=== PATIENT | male | born 1970 | race Caucasian/White ===

== ENCOUNTER 2020-12-26 05:19 | Inpatient (IN) | payer BC ==
[2020-12-19 14:52] LABS: BASOPHILS # (AUTO) 0.1 X10'3 (0-0.2); EOSINOPHILS # (AUTO) 0.2 X10'3 (0-0.9); EOSINOPHILS % (AUTO) 4.6 % (0-6); LYMPHOCYTES # (AUTO) 0.5 X10'3 (1.1-4.8); LYMPHOCYTES % (AUTO) 10.1 % (21-51); MEAN CORPUSCULAR HEMOGLOBIN 34.6 PG (27.0-31.0); MEAN CORPUSCULAR HGB CONC 33.8 g/dL (33.0-36.5); MEAN CORPUSCULAR VOLUME 102.6 FL (78-98); MEAN PLATELET VOLUME 7.5 FL (7.4-10.4); MONOCYTES # (AUTO) 0.4 X10'3 (0-0.9); MONOCYTES % (AUTO) 8.4 % (2-12); NEUTROPHILS % (AUTO) 75.9 % (42-75); PRE OP HEMATOCRIT 41.5 % (42.0-52.0); PRE OP PLATELET COUNT 248 X10'3 (140-440); RED BLOOD COUNT 4.05 X10'6 (4.70-6.10); RED CELL DISTRIBUTION WIDTH 14.4 % (11.5-14.5)
[2020-12-19 15:07] LABS: ALBUMIN 3.8 G/DL (3.4-5.0); ALBUMIN/GLOBULIN RATIO 1.1 (1.1-1.5); ALKALINE PHOSPHATASE 82 IU/L (46-116); BLOOD UREA NITROGEN 16 MG/DL (7-18); BUN/CREATININE RATIO 17.8 (5.4-32.0); CALCIUM 8.8 MG/DL (8.5-10.1); CHLORIDE 107 MMOL/L (99-107); PRE OP ALT 51 U/L (30-65); PRE OP ANION GAP 10 (8-16); PRE OP AST 26 U/L (10-37); PRE OP BILIRUB, TOTAL 0.6 MG/DL (0.0-1.0); PRE OP GLUCOSE 96 MG/DL (70-104); PRE OP POTASSIUM 4.1 MMOL/L (3.4-5.1); PRE OP SODIUM 143 MMOL/L (135-145); TOTAL CARBON DIOXIDE 25.9 MMOL/L (24-32); TOTAL PROTEIN 7.3 G/DL (6.4-8.2); eGFR 89 ML/MIN
[2020-12-26] VITALS (23 sets, daily range): BP systolic 112–134; BP diastolic 58–82
[~2020-12-26] VITALS: Ht 180.3 cm; Wt 72.8 kg
[~2020-12-26 05:19] MED LIST: DIGE1TAB PO; FISH1CAP15 PO; LACT1CAP65 PO; MULT-1085 PO; metroNIDAZOLE-Flagyl 500mg/NS 100ML IVPB IV ONE; ringers solution, lacted 1,000 ML IV SCH
[2020-12-26] MEDS ORDERED: MALTODEXTRIN/FRUCTOSE 0.68 KCAL/ML LIQUID 296ML BOTTLE PO ONE (05:30)
[2020-12-26] MEDS ORDERED: famotidine 20mg tablet PO ONE (05:30)
[2020-12-26] MEDS ORDERED: ceFOXitin 2GM-NS 100mL ADDvant 100 ML IV ONE (05:30)
[2020-12-26] MEDS ORDERED: heparin, porcine 5000 units/ml vial SQ ONE (05:30)
[2020-12-26] MEDS ORDERED: BUPIVAcaine/PF 2.5mg/ml (0.25%) 10ml vial ONE (07:13)
[2020-12-26] MEDS ORDERED: povidone-iodine 10% ointment 1 APPLIC APPLIC TP ONE (07:13)
[2020-12-26] MEDS ORDERED: LIDOCAINE 1%/EPI 1:100,000 inj. 10 ML multi-dose vial ONE (07:16)
[2020-12-26] MEDS ORDERED: morphine 4 MG/ML inj SYRINge IV PRN (07:25)
[2020-12-26] MEDS ORDERED: meperidine/PF 25mg/ml syringe IV PRN ×3 (07:25)
[2020-12-26] MEDS ORDERED: morphine 2 MG/ML inj. syringe IV PRN (07:25)
[2020-12-26] MEDS ORDERED: proCHLORperazine 10 MG/2 ml inj IV PRN (07:25)
[2020-12-26] MEDS ORDERED: ringers solution, lacted 1,000 ML IV SCH (07:25)
[2020-12-26] MEDS ORDERED: ondansetron/PF 4mg/2ml inj IV PRN (07:25)
[2020-12-26] MEDS ORDERED: midazolam 1 mg/ML 2ml injection ONE (07:32)
[2020-12-26] MEDS ORDERED: fentaNYL /PF 50mcg/ml 5ml ampule ONE (07:32)
[2020-12-26] MEDS ORDERED: propofol inj 20 ML IV ONE (07:34)
[2020-12-26] MEDS ORDERED: rocuronium 10mg/ml inj IV ONE ×2 (07:34→07:43)
[2020-12-26] MEDS ORDERED: LIDOcaine 2% (20mg/ml) 5ml vial ONE (07:34)
[2020-12-26] MEDS ORDERED: sevoflurane 250ml liquid IH ONE (07:43)
[2020-12-26] MEDS ORDERED: dexamethasone sod phosphate 10mg/ml inj ONE (07:43)
[2020-12-26] MEDS ORDERED: ceFOXitin 1000 MG inj ONE ×2 (12:00)
[2020-12-26] MEDS ORDERED: meperidine/PF 25mg/ml syringe ONE ×2 (12:42→13:14)
[2020-12-26] MEDS ORDERED: neostigmine methylsulfate 1 MG/ML 10ml vial ONE (13:00)
[2020-12-26] MEDS ORDERED: glycopyrrolate 0.2mg/ml inj ONE (13:00)
[2020-12-26] MEDS ORDERED: furosemide 40mg/4ml inj ONE (13:00)
--- NOTE | 2020-12-26 13:18 | NUR ---
Received from OR via BED, accompanied by Anesthesiologist MARICRUZ and report given by Anesthesiolgist. PT. ARRIVED WITH LMA, O2 AT 6 L. VIA MASK. LR INFUSING IN L. HAND 20G AT 100 ML/HR. IV SITE CDI. FC DRAINING TO GRAVITY 400 ML DARK STRAW URINE NOTED. 2 ABDOMINAL SITES DERMABONDED. R. LOWER QUADRANT ILEOSTOMY, NO CONTENTS, RUQ MAGDALENA DRAIN, LLQ MAGDALENA DRAIN, BOTH DRAINS DARK RED DRAINAGE NOTED. ABD. PAD WITH MESH UNDERCLOTHING AT ANAL AREA. ALL AREAS CLEAN AND DRY. VSS. NO S.S OF PAIN NOTED. Addendum: 12/26/20 at 1341 by Kathie Sharif RN Amended: Links added.
[2020-12-26] MEDS ORDERED: acetaminophen 1,000mg/100ml IV 100 ML IV ONE (13:46)
[2020-12-26] MEDS ORDERED: HYDROcodone/acetaminophen 5mg/325mg tablet PO PRN (14:10)
[2020-12-26] MEDS ORDERED: CADD PCA waste documentation MC PRN (14:10)
[2020-12-26] MEDS ORDERED: naloxone 0.4 mg/ml inj IV PRN (14:10)
[2020-12-26] MEDS: HYDROmorph./NS 0.2 mg/ml CADD 100 ML IV SCH ×5 (14:56→23:00)
[2020-12-26] MEDS ORDERED: HYDROmorph./NS 0.2 mg/ml CADD 100 ML IV SCH (15:00)
--- NOTE | 2020-12-26 15:18 | NUR ---
REPORT CALLED TO DELMAR MARTINEZ. CADD PUMP ASSEMBLED AND ATTACHED. FIRST DOSE TEST GIVEN BY PT. INSTRUCTIONS GIVEN ABOUT USAGE. PT. STATES UNDERSTANDING. VSS. ROOM AIR WITH SATS AT 98-100%. PT DENES PAIN. ABLE TO CONVERSE. REPORTS FC DISCOMFORT. TUBING CHECKED AND RECOILED. 500 ML TOTAL IN FC STRAW COLORED URINE. MAGDALENA DRAINS X2 EMPTIED 50 ML TOTAL (25 ML EACH) DARK RED DRAINAGE. ALL SITES ARE CDI. IV IN LEFT HAND WITH LR INFUSING AT 100 ML/HR. SITE CDI. NO INFILTRATION NOTED. PT. TRANSPORTED TO ROOM WITH PRESENT TO ROOM. PT. SITUATED IN ROOM RN PRESENT. ALL QUESTIONS ANSWERED. ALL DC CRITERIA MET. 2 BAGS OF BELONGINGS PUT IN CLOSET. PT. BED LOW. CALL LIGHT AND PAIN PUMP ACCESSIBLE. PT. TOLERATED TRANSFER WELL. Addendum: 12/26/20 at 1527 by Kathie Sharif RN Amended: Links added.
[2020-12-26] MEDS ORDERED: ceFOXitin 1 GM/D5W 50mL IVPB 100 ML IV SCH (16:00)
[2020-12-26] MEDS: ceFOXitin inj 1,000 MG in normal saline 100ml IV soln 100 ML IV SCH (16:13)
[2020-12-26] MEDS: potassium CL 20mEq in D5-1/2NS 1,000 ML IV SCH ×3 (16:13→23:05)
[2020-12-26] MEDS: metroNIDAZOLE-Flagyl 500mg/NS 100 ML IV SCH (17:16)
[2020-12-26] MEDS: heparin, porcine 5000 units/ml vial SQ SCH (17:16)
--- NOTE | 2020-12-26 18:48 | NUR ---
patient arrived from Recovery with 2 karthikeyan drains in right abdomen, ileostomy with minimal brownish reddish drainage in place to right abdomen. Pad to rectum with minimal serosang drainage in place with mesh pants. Patient is well controlled with his pain using Dilaudid cadd. present. tolerating clear liquid diet. recovery report given by paloma. post op VSS.
--- NOTE | 2020-12-26 18:49 | NUR ---
Patient in room RAN 360. I have received report from DELMAR MARTINEZ and had the opportunity to ask questions and assume patient care. Addendum: 12/26/20 at 1849 by Michelle Suarez RN Amended: Links added.
--- NOTE | 2020-12-26 18:51 | NUR ---
Problems reprioritized. Patient report given, questions answered & plan of care reviewed with Briana MARTINEZ.
--- NOTE | 2020-12-26 22:50 | NUR ---
ATTEMPT TO GET PT UP TO AMBULATE AND SAT EDGE OF BED BECAME DIZZY AND NAUSEATED. ZOFRAN OBTAINED AND GIVEN AFTER TAKING WHIFFS OF AN ALCOHOL SWAB TO ASSIST WITH THE NAUSEA. THEN SLOWLY PT STOOD UP AT SIDE OF BED STOOD IN PLACE MOVED HIS FEET THEN LAID BACK DOWN IN BED. AFTER 10 MINUTES OF REST IS TEACHING DONE PT USED IT 5 TIMES TO LEVEL 2500 TO 3000 AND TOLERATED WELL. LIGHTS OF TO LET PT REST AND ZOFRAN TO KICK IN BEFORE ATTEMPTING AMBULATION AGAIN. 5CC FROM THE ILEOSTOMY BAG WITH SMALL AMT OF GAS NOTED. MAGDALENA # ONE 25CC EMPTIED.
[2020-12-26] MEDS: ondansetron/PF 4mg/2ml inj IV PRN (22:56)
[2020-12-27] MEDS: metroNIDAZOLE-Flagyl 500mg/NS 100 ML IV SCH ×3 (00:25→16:31)
[2020-12-27] MEDS: HYDROmorph./NS 0.2 mg/ml CADD 100 ML IV SCH ×12 (00:31→23:00)
[2020-12-27] MEDS: heparin, porcine 5000 units/ml vial SQ SCH ×3 (00:31→16:00)
[2020-12-27] MEDS: ceFOXitin inj 1,000 MG in normal saline 100ml IV soln 100 ML IV SCH (01:27)
--- NOTE | 2020-12-27 01:30 | NUR ---
PT ASSISTED UP WAS WEAK AND DIZZY AT FIRST THEN AMBULATED 300 FEET WITH 2 RN'S AND TOLERATED FAIR. USED IS WITH ENCOURAGEMENT. ASSISTED TO BED, TOLERATED FAIR. SCD'S ON AND USING CADD WITH PAIN CONTROL. NO NEW RECTAL DRAINAGE AND ILEOTOMY WITH SOME GAS PASSED AND MAGDALENA'S RIGHT MIS AND LEFT LOWER ABD D/I AND DRAINING SANGUINOUS FLUIDS.
--- NOTE | 2020-12-27 03:21 | NUR ---
SEE PCT POST OP VITAL ENTRY'S. Addendum: 12/27/20 at 0321 by Michelle Suarez RN Amended: Links added.
[2020-12-27 06:23] LABS: ALBUMIN 2.8 G/DL (3.4-5.0); ANION GAP 1 (8-16); BASOPHILS % (AUTO) 0.4 % (0-1); BLOOD UREA NITROGEN 9 MG/DL (7-18); BUN/CREATININE RATIO 9.9 (5.4-32.0); C-REACTIVE PROTEIN 0.43 MG/DL (0.0-0.5); CALCIUM 7.8 MG/DL (8.5-10.1); CHLORIDE 106 MMOL/L (99-107); CREATININE 0.91 MG/DL (0.60-1.10); EOSINOPHILS % (AUTO) 0 % (0-6); GLUCOSE 142 MG/DL (70-104); HEMATOCRIT 34.5 % (42.0-52.0); LYMPHOCYTES # (AUTO) 0.3 X10'3 (1.1-4.8); LYMPHOCYTES % (AUTO) 3.6 % (21-51); MEAN CORPUSCULAR HEMOGLOBIN 35.7 PG (27.0-31.0); MEAN CORPUSCULAR HGB CONC 34.6 g/dL (33.0-36.5); MEAN CORPUSCULAR VOLUME 103.1 FL (78-98); MEAN PLATELET VOLUME 7.7 FL (7.4-10.4); MONOCYTES # (AUTO) 0.7 X10'3 (0-0.9); MONOCYTES % (AUTO) 8.3 % (2-12); NEUTROPHILS # (AUTO) 7.5 X10'3 (1.8-7.7); NEUTROPHILS % (AUTO) 87.7 % (42-75); PLATELET COUNT 181 X10'3 (140-440); RED BLOOD COUNT 3.35 X10'6 (4.70-6.10); RED CELL DISTRIBUTION WIDTH 13.1 % (11.5-14.5); SODIUM 133 MMOL/L (135-145); TOTAL CARBON DIOXIDE 26.1 MMOL/L (24-32); WHITE BLOOD COUNT 8.5 X10'3 (4.5-11.0); eGFR 88 ML/MIN
--- NOTE | 2020-12-27 06:35 | NUR ---
Problems reprioritized. Patient report given, questions answered & plan of care reviewed with JUAN CANTU. Addendum: 12/27/20 at 0636 by Micehlle Suarez RN Amended: Links added.
--- NOTE | 2020-12-27 06:38 | NUR ---
Patient in room RAN 360. I have received report from Michelle MARTINEZ with Cassi MARTINEZ and had the opportunity to ask questions and assume patient care.
--- NOTE | 2020-12-27 07:00 | NUR ---
CADD settings cleared from noc shift, residual volume is correct
[2020-12-27 08:00] VITALS: BP 109/57
[2020-12-27] MEDS: potassium CL 20mEq in D5-1/2NS 1,000 ML IV SCH (08:56)
[2020-12-27] MEDS: ondansetron/PF 4mg/2ml inj IV PRN (09:33)
[2020-12-27 11:00] VITALS: BP 111/58
--- NOTE | 2020-12-27 11:30 | NUR ---
Patient had bernal removed at 0920 and complained of pressure in bladder along with urge to urinate. Bladder scan was done with 409ml in bladder. Shortly after the patient was able to urinate 375 in the urinal.
--- NOTE | 2020-12-27 12:41 | NUR ---
Nutrition Consult "low fiber education": Pt admit s/p colon resection for low rectal CA w/ Ileostomy placement. Hx chemotherapy pending pathology to determine if to continue per MD note. Pt/ seen by RD for written/verbal Ileostomy/low-fiber diet eds w/ RD contact information provided. RD thoroughly reviewed fiber content of foods; appropriate fiber sources, oral rehydration solutions, and nutrition strategies to ensure consistent ostomy output. Pt/ very attentive asking appropriate questions. RD encouraged pt/ to request RD if further questions during this admit and contact dietitian's office via TC or via e-mail if further questions following discharge. Pt reports does not eat gluten or dairy outside cheeses per preferences not an allergy; dietary notified. Advanced to low-fiber diet post-op. Will monitor for further nutrition intervention needs this admit. Addendum: 12/27/20 at [address] Amended: Links added.
--- NOTE | 2020-12-27 18:08 | NUR ---
Student documentation: I have reviewed and agree with all interventions, assessments performed and documented by SN Junie. Student Medication Administration: For this medication-pass time frame, all medication were reviewed, dispensed, administered and documented per hospital policy by SN Junie.
--- NOTE | 2020-12-27 18:37 | NUR ---
Problems reprioritized. Patient report given to Rosette RN with Cora RN, questions answered & plan of care reviewed with .
--- NOTE | 2020-12-27 18:38 | NUR ---
Patient in room RAN 360. I have received report from PEPE RN WITH SHAKER TENDER and had the opportunity to ask questions and assume patient care.
[2020-12-27 20:00] VITALS: BP 129/77
[2020-12-28] VITALS: BP 108/60
[2020-12-28] MEDS: HYDROmorph./NS 0.2 mg/ml CADD 100 ML IV SCH ×6 (01:00→11:00)
[2020-12-28] MEDS: metroNIDAZOLE-Flagyl 500mg/NS 100 ML IV SCH ×2 (01:14→09:06)
[2020-12-28] MEDS: heparin, porcine 5000 units/ml vial SQ SCH ×3 (01:23→16:30)
[2020-12-28 05:41] LABS: BASOPHILS % (AUTO) 0.5 % (0-1); EOSINOPHILS # (AUTO) 0.1 X10'3 (0-0.9); EOSINOPHILS % (AUTO) 1.6 % (0-6); HEMATOCRIT 34.5 % (42.0-52.0); HEMOGLOBIN 12.3 g/dl (14.0-17.9); LYMPHOCYTES # (AUTO) 0.4 X10'3 (1.1-4.8); LYMPHOCYTES % (AUTO) 7.1 % (21-51); MEAN CORPUSCULAR HEMOGLOBIN 35.5 PG (27.0-31.0); MEAN CORPUSCULAR HGB CONC 35.6 g/dL (33.0-36.5); MEAN CORPUSCULAR VOLUME 99.7 FL (78-98); MEAN PLATELET VOLUME 7.8 FL (7.4-10.4); MONOCYTES # (AUTO) 0.6 X10'3 (0-0.9); MONOCYTES % (AUTO) 10.5 % (2-12); NEUTROPHILS # (AUTO) 4.8 X10'3 (1.8-7.7); NEUTROPHILS % (AUTO) 80.3 % (42-75); PLATELET COUNT 184 X10'3 (140-440); RED BLOOD COUNT 3.46 X10'6 (4.70-6.10); WHITE BLOOD COUNT 5.9 X10'3 (4.5-11.0)
[2020-12-28] MEDS: potassium CL 20mEq in D5-1/2NS 1,000 ML IV SCH (05:44)
[2020-12-28 05:52] LABS: ALBUMIN 2.9 G/DL (3.4-5.0); ANION GAP 7 (8-16); BLOOD UREA NITROGEN 7 MG/DL (7-18); BUN/CREATININE RATIO 8.8 (5.4-32.0); C-REACTIVE PROTEIN 1.38 MG/DL (0.0-0.5); CALCIUM 8.5 MG/DL (8.5-10.1); CHLORIDE 106 MMOL/L (99-107); GLUCOSE 110 MG/DL (70-104); POTASSIUM 3.7 MMOL/L (3.5-5.1); SODIUM 140 MMOL/L (135-145); TOTAL CARBON DIOXIDE 26.7 MMOL/L (24-32); eGFR > 90 ML/MIN
--- NOTE | 2020-12-28 06:40 | NUR ---
Problems reprioritized. Patient report given, questions answered & plan of care reviewed with TAMMI MARTINEZ.
--- NOTE | 2020-12-28 06:45 | NUR ---
Patient in room RAN 345. I have received report from JUAN Dinero and had the opportunity to ask questions and assume patient care.
[2020-12-28 07:00] VITALS: BP 114/56
[2020-12-28 11:00] VITALS: BP 119/68
--- NOTE | 2020-12-28 19:20 | NUR ---
Problems reprioritized. Patient report given, questions answered & plan of care reviewed with JUAN Cope.
[2020-12-29] VITALS: BP 121/65
[2020-12-29] MEDS: heparin, porcine 5000 units/ml vial SQ SCH ×2 (00:48→07:21)
[2020-12-29 06:14] LABS: BASOPHILS % (AUTO) 0.5 % (0-1); EOSINOPHILS # (AUTO) 0.3 X10'3 (0-0.9); EOSINOPHILS % (AUTO) 6.5 % (0-6); HEMATOCRIT 36.3 % (42.0-52.0); HEMOGLOBIN 12.5 g/dl (14.0-17.9); LYMPHOCYTES # (AUTO) 0.4 X10'3 (1.1-4.8); LYMPHOCYTES % (AUTO) 8.7 % (21-51); MEAN CORPUSCULAR HGB CONC 34.5 g/dL (33.0-36.5); MEAN CORPUSCULAR VOLUME 101.5 FL (78-98); MEAN PLATELET VOLUME 8.1 FL (7.4-10.4); MONOCYTES # (AUTO) 0.6 X10'3 (0-0.9); MONOCYTES % (AUTO) 12.4 % (2-12); NEUTROPHILS # (AUTO) 3.5 X10'3 (1.8-7.7); NEUTROPHILS % (AUTO) 71.9 % (42-75); PLATELET COUNT 185 X10'3 (140-440); RED BLOOD COUNT 3.57 X10'6 (4.70-6.10); RED CELL DISTRIBUTION WIDTH 12.6 % (11.5-14.5); WHITE BLOOD COUNT 4.8 X10'3 (4.5-11.0)
[2020-12-29 06:26] LABS: ALBUMIN 2.8 G/DL (3.4-5.0); ANION GAP 8 (8-16); BLOOD UREA NITROGEN 9 MG/DL (7-18); BUN/CREATININE RATIO 11.3 (5.4-32.0); C-REACTIVE PROTEIN 1.07 MG/DL (0.0-0.5); CALCIUM 8.5 MG/DL (8.5-10.1); CHLORIDE 108 MMOL/L (99-107); GLUCOSE 99 MG/DL (70-104); POTASSIUM 3.8 MMOL/L (3.5-5.1); SODIUM 143 MMOL/L (135-145); TOTAL CARBON DIOXIDE 27.3 MMOL/L (24-32); eGFR > 90 ML/MIN
--- NOTE | 2020-12-29 06:30 | NUR ---
Patient in room RAN 345. I have received report from JUAN Cope and had the opportunity to ask questions and assume patient care.
[2020-12-29 07:00] VITALS: BP 103/63
--- NOTE | 2020-12-29 07:39 | NUR ---
MAGDALENA drains DC'd by Dr Tenorio at bedside. Covered with sterile 4x4 gauze and silk tape.
[2020-12-29 11:35] VITALS: BP 125/73
--- NOTE | 2020-12-29 13:08 | NUR ---
Pt discharged to home with all belongings, in private vehicle, accompanied by . Discharge instructions and medications reviewed. No new prescriptions ordered. Extensive ostomy education provided by primary RN and flanging machine operator. Ileostomy applianced changed prior to discharge by flanging machine operator with at bedside. Ostomy supplies sent home with patient and sample supplies to be sent to pt's house, set up by flanging machine operator. Pt instructed to follow up with Dr Tenorio on January 12 at 1300 at [facility] in [place]. Signs/symptoms of infection explained to pt with instructions to contact Dr Tenorio with any concerns. Pt and stated understanding and willingness to comply with all discharge instructions. IV DC'd, cannula intact. Pt escorted to front lobby by student RN.
--- NOTE | 2020-12-29 16:35 | NUR ---
WOUND VAC EDUCATION PROVIDED BY WOUND CARE 1. Patient instructed to call the Wound Center or their Home Health Agency immediately if: * They notice a change in the color or amount of the fluid in the canister. * Their wound looks more red than usual or has a foul smell. * The skin around their wound looks reddened or irritated. * The dressing feels loose or appears to be loose. * They experience any increase or changes in their pain. * The alarm will not turn off. 2. Patient instructed that they should not be disconnected from suction for more than 2 hours at a time. * If they are not able to get the suction back on, they need to remove the dressing and take all of the foam out of the wound. * Then moisten sterile gauze with normal saline and place on/in the wound. * Change the dressing once a day until arrangements have been made to replace the wound vac dressing. 3. Patient instructed to turn the wound vac machine OFF and call 911 or go to the ED immediately if their canister fills rapidly with blood. 4. If any of these occur while in the hospital tell a nurse immediately. Addendum: 12/29/20 at 1635 by Leo Escobar RN Amended: Links added.
== END 2020-12-29 13:14 | disposition home or self-care (01) | DRG 331 ==
LOC: UNDOADMIN 05:19 → PAS IN 05:19 → SUR 3N 15:10 → PAS IN 15:10 → SUR 3N 12-28 01:45
PROVIDERS: ADMIT Colon & Rectal Surgery; ATTEND Colon & Rectal Surgery
PROC: 0DTP4ZZ Resection of Rectum, Percutaneous Endoscopic Approach (ICD-10-PCS; 2020-12-26)
PROC: 8E0W4CZ Robotic Assisted Procedure of Trunk Region, Percutaneous Endoscopic Approach (ICD-10-PCS; 2020-12-26)
PROC: 3E0T3BZ Introduction of Anesthetic Agent into Peripheral Nerves and Plexi, Percutaneous Approach (ICD-10-PCS; 2020-12-26)
PROC: 0D1B0Z4 Bypass Ileum to Cutaneous, Open Approach (ICD-10-PCS; principal; 2020-12-26 07:43)
DX: C20 Malignant neoplasm of rectum (principal); Z20.822 Contact with and (suspected) exposure to COVID-19; E86.0 Dehydration
CPT/HCPCS: Z7506; Z7508; 36415; 80048; 80053; 82948; 85025; 86140; 86885; 86900; 86901; 87081; 93005; A4215; A4338; A4355; A4402; A4421; A4618; A6258; A7000; C1758; G0378; J0131; J0694; J1100; J1170; J1644; J1940; J2001; J2175; J2250; J2405; J2704; J2710; J3010; J3480; J3490; J7030; J7120; U0003; U0005

== ENCOUNTER 2021-05-29 09:17 | Inpatient (IN) | payer BC ==
[2021-05-23 15:51] LABS: PRE OP PROTIME 10.1 SECONDS (9.0-12.0)
[2021-05-29] VITALS (28 sets, daily range): BP systolic 95–129; BP diastolic 51–80
[~2021-05-29] VITALS: Ht 180.3 cm; Wt 64.5 kg
[~2021-05-29 09:17] MED LIST changes: +APIX2.5T PO; -DIGE1TAB PO; -FISH1CAP15 PO; -LACT1CAP65 PO; +MALTODEXTRIN/FRUCTOSE 0.68 KCAL/ML LIQUID 296ML BOTTLE PO ONE; -MULT-1085 PO; +ceFOXitin 2GM-NS 100mL ADDvant 100 ML IV ONE; +cefazolin/dext.iso 2gm/50ml IV ONE; +famotidine 20mg tablet PO ONE; +heparin, porcine 5000 units/ml vial SQ ONE; -metroNIDAZOLE-Flagyl 500mg/NS 100ML IVPB IV ONE; +metroNIDAZOLE-Flagyl 500mg/NS 100ml IVPB IV ONE
[2021-05-29 11:19] LABS: BASOPHILS % (AUTO) 0.5 % (0-1); EOSINOPHILS % (AUTO) 0.5 % (0-6); HEMATOCRIT 37.9 % (42.0-52.0); HEMOGLOBIN 12.8 g/dl (14.0-17.9); LYMPHOCYTES # (AUTO) 0.3 X10'3 (1.1-4.8); LYMPHOCYTES % (AUTO) 5.3 % (21-51); MEAN CORPUSCULAR HEMOGLOBIN 36.6 PG (27.0-31.0); MEAN CORPUSCULAR HGB CONC 33.9 g/dL (33.0-36.5); MEAN PLATELET VOLUME 7.9 FL (7.4-10.4); MONOCYTES # (AUTO) 0.4 X10'3 (0-0.9); MONOCYTES % (AUTO) 6.3 % (2-12); NEUTROPHILS # (AUTO) 4.9 X10'3 (1.8-7.7); NEUTROPHILS % (AUTO) 87.4 % (42-75); PLATELET COUNT 166 X10'3 (140-440); RED BLOOD COUNT 3.51 X10'6 (4.70-6.10); WHITE BLOOD COUNT 5.6 X10'3 (4.5-11.0)
[2021-05-29 11:44] LABS: ANISOCYTOSIS 2+; PLATELET ESTIMATE NORMAL
[2021-05-29] MEDS ORDERED: BUPIVAcaine 0.5% inj/PF 30 ML ONE (13:17)
[2021-05-29] MEDS ORDERED: tobramycin 40mg/ml inj ONE ×2 (13:19→14:01)
[2021-05-29] MEDS ORDERED: FENTANYL CITRATE/PF 50 MCG/1 ML VIAL ONE (13:34)
[2021-05-29] MEDS ORDERED: midazolam 1 mg/ML 2ml injection ONE (13:34)
[2021-05-29] MEDS ORDERED: labetalol 20mg/4ml (5mg/ml) syringe IV PRN (13:40)
[2021-05-29] MEDS ORDERED: ringers solution, lacted 1,000 ML IV SCH (13:40)
[2021-05-29] MEDS ORDERED: ondansetron/PF 4mg/2ml inj IV PRN ×2 (13:40→15:25)
[2021-05-29] MEDS ORDERED: morphine 2 MG/ML inj. syringe IV PRN (13:40)
[2021-05-29] MEDS ORDERED: fentaNYL/PF 50MCG/1 ML 2ML syringe IV PRN ×2 (13:40)
[2021-05-29] MEDS ORDERED: hydrALAZINE 20mg/ml inj. IV PRN (13:40)
[2021-05-29] MEDS ORDERED: glycopyrrolate 0.2mg/ml inj ONE (13:52)
[2021-05-29] MEDS ORDERED: rocuronium 10mg/ml inj IV ONE (13:52)
[2021-05-29] MEDS ORDERED: LIDOcaine 2% (20mg/ml) 5ml vial ONE (13:52)
[2021-05-29] MEDS ORDERED: ondansetron/PF 4mg/2ml inj ONE (13:52)
[2021-05-29] MEDS ORDERED: neostigmine methylsulfate 1 MG/ML 10ml vial ONE (13:52)
[2021-05-29] MEDS ORDERED: propofol inj 20 ML IV ONE (13:52)
[2021-05-29] MEDS ORDERED: LIDOcaine 1% 30ml preserv. free vial ONE (14:00)
--- NOTE | 2021-05-29 15:20 | NUR ---
PT ARRIVED TO RECOVERY ROOM VIA BED, ACCOMPANIED BY -REPORT GIVEN, VSS, PT VERY SLEEPY, PIV 20G TO RIGHT UE, SCDS ON, ONE DRSG TO RLQ-CDI, PT HAS ORAL AIRWAY IN PLACE WITH MASK O2 AT 10 LTRS.
[2021-05-29] MEDS ORDERED: HYDROcodone/acetaminophen 5mg/325mg tablet PO PRN (15:25)
--- NOTE | 2021-05-29 15:26 | NUR ---
UNABLE TO AROUSE PT, PT UNABLE TO MAINTAIN AIRWAY EVEN WITH ORAL AIRWAY IN PLACE, O2 SATS DROPPED QUICKLY TO 70'S, PT REQUIRED CHIN LIFT TO MAINTAIN AIRWAY.
--- NOTE | 2021-05-29 15:30 | NUR ---
O2 SATS BETTER 99-100% WITH 15LTRS MASK ON PT WITH CHIN LIFT BEING MAINTAINED BY NURSING. DR TURCIOS NOT PRESENT BUT INFORMED, DR VALENCIA AT BEDSIDE ASSISTING WITH CHIN LIFT.
[2021-05-29] MEDS ORDERED: ceFOXitin 1 GM/D5W 50mL IVPB 100 ML IV SCH (16:00)
--- NOTE | 2021-05-29 16:20 | NUR ---
PT AROUSABLE NOW, ABLE TO PROTECT OWN AIRWAY-95% ON ROOM AIR, VSS-BP LOW 95/50, PT DENIES ANY PAIN, NO CHANGES-ABD DRSG, IV LR AT 100L/HR
[2021-05-29] MEDS ORDERED: acetaminophen 1,000mg/100ml IV 100 ML IV ONE (16:35)
[2021-05-29] MEDS: ketorolac tromethamine 15mg/ml inj. IV SCH ×2 (17:24→20:29)
--- NOTE | 2021-05-29 17:40 | NUR ---
PT C/O PAIN AND NAUSEA-GIVEN ZOFRAN, IV TYLENOL AND TORADOL ORDERED, VSS.
[2021-05-29] MEDS: morphine 4 MG/ML inj SYRINge IV PRN ×2 (17:44→18:02)
--- NOTE | 2021-05-29 18:25 | NUR ---
SD GIVEN 2 DOSES OF MORPHINE WITH GOOD RESULTS PAIN 4/10, VSS, BP BETTER, PT AWAKE AND TOLERATING ICE CHIPS, NO CHANGE IN DRSG, REPORT CALLED TO DAY RN BUT WILL SPEAK WITH NOC RN UPON ARRIVAL TO FLOOR.
--- NOTE | 2021-05-29 18:40 | NUR ---
PT TAKEN WITH ALL BELONGINGS TO ROOM 313, REPORT GIVEN TO GERI MOHR, ALL QUESTIONS ANSWERED, AT BEDSIDE, PT AWAKE, NO CHANGES IN ASSESSMENT, PAIN 06/08, VSS, BED LOW AND LOCKED, CALL LIGHT IN REACH
[2021-05-29] MEDS: ceFOXitin inj 1,000 MG in normal saline 100ml IV soln 100 ML IV SCH (19:37)
[2021-05-29] MEDS: potassium CL 20mEq in D5-1/2NS 1,000 ML IV SCH (19:38)
[2021-05-29] MEDS: heparin, porcine 5000 units/ml vial SQ SCH (20:31)
[2021-05-30] VITALS: BP 108/59
[2021-05-30 02:00] VITALS: BP 96/52
[2021-05-30] MEDS: ceFOXitin inj 1,000 MG in normal saline 100ml IV soln 100 ML IV SCH (02:02)
[2021-05-30] MEDS: ketorolac tromethamine 15mg/ml inj. IV SCH ×4 (02:02→19:59)
[2021-05-30] MEDS: potassium CL 20mEq in D5-1/2NS 1,000 ML IV SCH ×2 (04:45→22:34)
--- NOTE | 2021-05-30 05:46 | NUR ---
DR VALENCIA HERE AND TALKED WITH THE PATIENT AT THIS TIME AND INFORMED HIM OF THE PLAN OF CARE. TO TAKE IT SLOW WITH SIPS THROUGHOUT THE DAY AND TO ADVANCE TO A LOW RESIDUE DIET TOLERATED. HE INFORMED THE PATIENT THAT HIS BROTHERS WOULD BE DISCONTINUED TO DAY AND THAT HE WANTED THE PATIENT TO BE OUT OF BED BUT TO TAKE IT SLOW. PATIENT STABLE AND UNDERSTANDS THE PLAN. WILL INFORM DAYSHIFT NURSE OF THE PLAN.
--- NOTE | 2021-05-30 06:29 | NUR ---
Problems reprioritized. Patient report given, questions answered & plan of care reviewed with TANA MARTINEZ.
[2021-05-30 06:52] LABS: BASOPHILS % (AUTO) 0.2 % (0-1); EOSINOPHILS % (AUTO) 0 % (0-6); HEMATOCRIT 34.8 % (42.0-52.0); LYMPHOCYTES # (AUTO) 0.4 X10'3 (1.1-4.8); LYMPHOCYTES % (AUTO) 7.6 % (21-51); MEAN CORPUSCULAR HEMOGLOBIN 36.5 PG (27.0-31.0); MEAN CORPUSCULAR HGB CONC 34.3 g/dL (33.0-36.5); MEAN CORPUSCULAR VOLUME 106.3 FL (78-98); MEAN PLATELET VOLUME 7.7 FL (7.4-10.4); MONOCYTES # (AUTO) 0.5 X10'3 (0-0.9); MONOCYTES % (AUTO) 10.9 % (2-12); NEUTROPHILS # (AUTO) 3.8 X10'3 (1.8-7.7); NEUTROPHILS % (AUTO) 81.3 % (42-75); PLATELET COUNT 155 X10'3 (140-440); RED BLOOD COUNT 3.28 X10'6 (4.70-6.10); RED CELL DISTRIBUTION WIDTH 18.3 % (11.5-14.5); WHITE BLOOD COUNT 4.6 X10'3 (4.5-11.0)
[2021-05-30 06:53] LABS: ALBUMIN 3.1 G/DL (3.4-5.0); ANION GAP 9 (8-16); BLOOD UREA NITROGEN 19 MG/DL (7-18); CALCIUM 8.4 MG/DL (8.5-10.1); CHLORIDE 106 MMOL/L (99-107); CREATININE 0.95 MG/DL (0.60-1.10); GLUCOSE 127 MG/DL (70-104); POTASSIUM 4.2 MMOL/L (3.5-5.1); SODIUM 138 MMOL/L (135-145); TOTAL CARBON DIOXIDE 22.7 MMOL/L (24-32); eGFR 84 ML/MIN
[2021-05-30] MEDS ORDERED: normal saline 1000ml 1,000 ML IV ONE (08:50)
[2021-05-30] MEDS: heparin, porcine 5000 units/ml vial SQ SCH ×2 (09:20→19:58)
[2021-05-30 11:00] VITALS: BP 116/64
[2021-05-30 15:00] VITALS: BP 115/65
[2021-05-30 20:00] VITALS: BP 114/68
[2021-05-31] VITALS (7 sets, daily range): BP systolic 111–124; BP diastolic 65–77
[2021-05-31] MEDS: ketorolac tromethamine 15mg/ml inj. IV SCH ×3 (02:04→14:24)
[2021-05-31 06:35] LABS: BASOPHILS % (AUTO) 0.2 % (0-1); EOSINOPHILS % (AUTO) 0.7 % (0-6); HEMATOCRIT 36.1 % (42.0-52.0); HEMOGLOBIN 12.6 g/dl (14.0-17.9); LYMPHOCYTES # (AUTO) 0.4 X10'3 (1.1-4.8); LYMPHOCYTES % (AUTO) 6.2 % (21-51); MEAN CORPUSCULAR HEMOGLOBIN 37.1 PG (27.0-31.0); MEAN CORPUSCULAR HGB CONC 34.9 g/dL (33.0-36.5); MEAN CORPUSCULAR VOLUME 106.5 FL (78-98); MEAN PLATELET VOLUME 7.7 FL (7.4-10.4); MONOCYTES # (AUTO) 0.5 X10'3 (0-0.9); MONOCYTES % (AUTO) 7.8 % (2-12); NEUTROPHILS # (AUTO) 5.4 X10'3 (1.8-7.7); NEUTROPHILS % (AUTO) 85.1 % (42-75); PLATELET COUNT 150 X10'3 (140-440); RED BLOOD COUNT 3.39 X10'6 (4.70-6.10); RED CELL DISTRIBUTION WIDTH 18.5 % (11.5-14.5); WHITE BLOOD COUNT 6.4 X10'3 (4.5-11.0)
--- NOTE | 2021-05-31 06:38 | NUR ---
Problems reprioritized. Patient report given, questions answered & plan of care reviewed with D RN.
[2021-05-31 07:07] LABS: ALBUMIN 3.2 G/DL (3.4-5.0); ANION GAP 9 (8-16); BLOOD UREA NITROGEN 15 MG/DL (7-18); BUN/CREATININE RATIO 18.8 (5.4-32.0); CALCIUM 8.3 MG/DL (8.5-10.1); CHLORIDE 106 MMOL/L (99-107); GLUCOSE 108 MG/DL (70-104); POTASSIUM 3.9 MMOL/L (3.5-5.1); SODIUM 140 MMOL/L (135-145); TOTAL CARBON DIOXIDE 25.3 MMOL/L (24-32); eGFR > 90 ML/MIN
[2021-05-31] MEDS: potassium CL 20mEq in D5-1/2NS 1,000 ML IV SCH ×2 (07:25→15:00)
--- NOTE | 2021-05-31 08:07 | NUR ---
page sent PAGER ID: [phone] MESSAGE: [phone]. Ulices Ibarra. post op ileostomy reversal S/ P Op day 2. complains of nausea and gas. nausea early am. has ZOFRAN but is not time for it yet. feels like He needs something now. please adv [phone] Darleen
[2021-05-31] MEDS ORDERED: ondansetron/PF 4mg/2ml inj IV PRN (08:15)
[2021-05-31] MEDS: heparin, porcine 5000 units/ml vial SQ SCH ×2 (08:45→20:06)
--- NOTE | 2021-05-31 14:05 | NUR ---
WALKED PT FOR THE FIRST SINCE SURGERY, PT VERY HAPPY TO BE MOVING. ASSISTED PT IN WALKING. WALKED AROUND ACCE UNIT X 5= OVER 400 FT. BROTHERS STILL IN PLACE, WILL MONITOR OUTPUT PER ORDER AND DC WHEN READY..
[2021-05-31] MEDS: NUT.TX.IMPAIRED DIGEST FXN (Ensure Clear) 237 ML PO SCH (20:26)
[2021-06-01 02:00] VITALS: BP 117/79
[2021-06-01] MEDS: potassium CL 20mEq in D5-1/2NS 1,000 ML IV SCH (05:52)
[2021-06-01 06:00] VITALS: BP 121/82
[2021-06-01 06:04] LABS: BASOPHILS % (AUTO) 0.3 % (0-1); EOSINOPHILS # (AUTO) 0.1 X10'3 (0-0.9); EOSINOPHILS % (AUTO) 1.1 % (0-6); HEMOGLOBIN 13.1 g/dl (14.0-17.9); LYMPHOCYTES # (AUTO) 0.3 X10'3 (1.1-4.8); LYMPHOCYTES % (AUTO) 5.3 % (21-51); MEAN CORPUSCULAR HEMOGLOBIN 36.3 PG (27.0-31.0); MEAN CORPUSCULAR HGB CONC 34.4 g/dL (33.0-36.5); MEAN CORPUSCULAR VOLUME 105.6 FL (78-98); MEAN PLATELET VOLUME 7.8 FL (7.4-10.4); MONOCYTES # (AUTO) 0.5 X10'3 (0-0.9); MONOCYTES % (AUTO) 10.1 % (2-12); NEUTROPHILS # (AUTO) 4.1 X10'3 (1.8-7.7); NEUTROPHILS % (AUTO) 83.2 % (42-75); PLATELET COUNT 162 X10'3 (140-440); RED CELL DISTRIBUTION WIDTH 17.8 % (11.5-14.5)
--- NOTE | 2021-06-01 06:14 | NUR ---
reported to days. noted pt trying to advance his diet. decreased output - coninued IVF. bernal discontinued
[2021-06-01 06:20] LABS: ALBUMIN 2.9 G/DL (3.4-5.0); ANION GAP 8 (8-16); BLOOD UREA NITROGEN 16 MG/DL (7-18); BUN/CREATININE RATIO 21.6 (5.4-32.0); C-REACTIVE PROTEIN 1.65 MG/DL (0.0-0.5); CALCIUM 8.7 MG/DL (8.5-10.1); CHLORIDE 105 MMOL/L (99-107); CREATININE 0.74 MG/DL (0.60-1.10); GLUCOSE 110 MG/DL (70-104); POTASSIUM 3.9 MMOL/L (3.5-5.1); SODIUM 135 MMOL/L (135-145); TOTAL CARBON DIOXIDE 22.4 MMOL/L (24-32); eGFR > 90 ML/MIN
--- NOTE | 2021-06-01 06:52 | NUR ---
Patient in room MED 313. I have received report from riddhi Oconnor and had the opportunity to ask questions and assume patient care.
[2021-06-01] MEDS: heparin, porcine 5000 units/ml vial SQ SCH ×2 (07:44→20:20)
[2021-06-01] MEDS: NUT.TX.IMPAIRED DIGEST FXN (Ensure Clear) 237 ML PO SCH ×3 (08:00→18:00)
[2021-06-01 10:00] VITALS: BP 125/80
[2021-06-01 18:00] VITALS: BP 124/82
[2021-06-01 19:03] VITALS: BP 99/52
[2021-06-01 22:00] VITALS: BP 116/79
[2021-06-02 02:00] VITALS: BP 123/82
[2021-06-02 03:25] VITALS: BP 123/82
[2021-06-02 05:41] LABS: BASOPHILS % (AUTO) 0.3 % (0-1); EOSINOPHILS # (AUTO) 0.1 X10'3 (0-0.9); EOSINOPHILS % (AUTO) 1.1 % (0-6); HEMATOCRIT 37.7 % (42.0-52.0); LYMPHOCYTES # (AUTO) 0.3 X10'3 (1.1-4.8); LYMPHOCYTES % (AUTO) 7.1 % (21-51); MEAN CORPUSCULAR HEMOGLOBIN 36.7 PG (27.0-31.0); MEAN CORPUSCULAR HGB CONC 34.6 g/dL (33.0-36.5); MEAN PLATELET VOLUME 7.7 FL (7.4-10.4); MONOCYTES # (AUTO) 0.6 X10'3 (0-0.9); MONOCYTES % (AUTO) 11.5 % (2-12); NEUTROPHILS # (AUTO) 3.9 X10'3 (1.8-7.7); PLATELET COUNT 176 X10'3 (140-440); RED BLOOD COUNT 3.55 X10'6 (4.70-6.10); RED CELL DISTRIBUTION WIDTH 17.9 % (11.5-14.5); WHITE BLOOD COUNT 4.8 X10'3 (4.5-11.0)
[2021-06-02 05:45] LABS: ALBUMIN 2.9 G/DL (3.4-5.0); ANION GAP 8 (8-16); BLOOD UREA NITROGEN 16 MG/DL (7-18); BUN/CREATININE RATIO 21.3 (5.4-32.0); C-REACTIVE PROTEIN 1.75 MG/DL (0.0-0.5); CALCIUM 8.6 MG/DL (8.5-10.1); CHLORIDE 100 MMOL/L (99-107); CREATININE 0.75 MG/DL (0.60-1.10); GLUCOSE 116 MG/DL (70-104); POTASSIUM 3.7 MMOL/L (3.5-5.1); SODIUM 134 MMOL/L (135-145); TOTAL CARBON DIOXIDE 25.6 MMOL/L (24-32); eGFR > 90 ML/MIN
--- NOTE | 2021-06-02 06:38 | NUR ---
Problems reprioritized. Patient report given, questions answered & plan of care reviewed with Shelley.
--- NOTE | 2021-06-02 07:43 | NUR ---
Page Sent PAGER ID: [phone] MESSAGE: [phone]. Fred Elena. post op ileostomy. now on low residue diet. is okay to change him to regular ensure instead of clear. [phone] Darleen
[2021-06-02] MEDS: heparin, porcine 5000 units/ml vial SQ SCH ×2 (07:52→21:09)
[2021-06-02 08:00] VITALS: BP 96/56
[2021-06-02] MEDS: lactose-reduced food (Ensure High Protein) 237ml bottle PO SCH ×2 (13:00→18:00)
[2021-06-02 18:00] VITALS: BP 112/78
[2021-06-02] MEDS: psyllium seed 3.4 gm packet PO SCH (21:08)
[2021-06-02 22:00] VITALS: BP 119/78
[2021-06-02 22:22] VITALS: BP 112/78
[2021-06-03 02:00] VITALS: BP 103/71
[2021-06-03 07:00] VITALS: BP 122/76
[2021-06-03] MEDS: heparin, porcine 5000 units/ml vial SQ SCH ×2 (07:22→20:10)
[2021-06-03 07:50] LABS: BASOPHILS % (AUTO) 0.5 % (0-1); EOSINOPHILS # (AUTO) 0.1 X10'3 (0-0.9); EOSINOPHILS % (AUTO) 3.2 % (0-6); HEMOGLOBIN 13.5 g/dl (14.0-17.9); LYMPHOCYTES # (AUTO) 0.4 X10'3 (1.1-4.8); LYMPHOCYTES % (AUTO) 9.5 % (21-51); MEAN CORPUSCULAR HEMOGLOBIN 36.5 PG (27.0-31.0); MEAN CORPUSCULAR HGB CONC 34.6 g/dL (33.0-36.5); MEAN CORPUSCULAR VOLUME 105.5 FL (78-98); MEAN PLATELET VOLUME 8.1 FL (7.4-10.4); MONOCYTES # (AUTO) 0.5 X10'3 (0-0.9); MONOCYTES % (AUTO) 12.5 % (2-12); NEUTROPHILS % (AUTO) 74.3 % (42-75); PLATELET COUNT 207 X10'3 (140-440); RED BLOOD COUNT 3.69 X10'6 (4.70-6.10); RED CELL DISTRIBUTION WIDTH 17.3 % (11.5-14.5); WHITE BLOOD COUNT 4.1 X10'3 (4.5-11.0)
[2021-06-03] MEDS: lactose-reduced food (Ensure High Protein) 237ml bottle PO SCH ×3 (08:00→18:03)
[2021-06-03 08:24] LABS: ALBUMIN 3.5 G/DL (3.4-5.0); ANION GAP 13 (8-16); BLOOD UREA NITROGEN 20 MG/DL (7-18); BUN/CREATININE RATIO 24.4 (5.4-32.0); CHLORIDE 99 MMOL/L (99-107); CREATININE 0.82 MG/DL (0.60-1.10); GLUCOSE 107 MG/DL (70-104); SODIUM 136 MMOL/L (135-145); TOTAL CARBON DIOXIDE 24.5 MMOL/L (24-32); eGFR > 90 ML/MIN
[2021-06-03 09:14] LABS: POTASSIUM 2.8 MMOL/L (3.5-5.1)
[2021-06-03] MEDS ORDERED: magnesium 4gm in 100ml NS 100 ML IV PRN (09:20)
[2021-06-03] MEDS ORDERED: magnesium 2GM in 50ml NS 50 ML IV PRN (09:20)
[2021-06-03 09:41] LABS: MAGNESIUM 1.9 MG/DL (1.5-2.4)
[2021-06-03] MEDS: normal saline 1000ml 1,000 ML IV SCH (10:29)
[2021-06-03] MEDS: potassium CL 10mEq/100ml bag 100 ML IV PRN ×7 (10:30→23:46)
[2021-06-03 11:00] VITALS: BP 103/68
--- NOTE | 2021-06-03 14:32 | NUR ---
Initial: Pt admit for ileostomy reversal, now POD #5. Patient initially on a clear liquid diet and eating well with mostly 75-100% PO intake. Diet has appropriately been advanced to low fiber and pt initially with 50% PO intake which has declined to 25% PO intake of two most recent meals. Noted pt now receiving an Ensure High Protein TIDWM per MD, documented with 25% PO intake x 1 with refusal x 2. Recommend discontinuing ONS if pt continues to refuse, however would benefit from ONS change to Ensure Enlive if pt accepting for additional kcal/protein. Food preferences were obtained and d/w dietary, see below. Noted per RD note from d/w pt/SO at previous admit pt reports doesn't eat gluten or dairy other than cheeses per preferences and not an allergy. LBM 3/4, documented with diarrhea. Pt receiving routine Metamucil as MD would like to wait to use Imodium at this time per progress note. Will continue to follow and monitor need for further nutrition intervention. Recommendations: 1) Continue low fiber diet 2) Ensure High Protein TIDWM per MD; consider discontinuing if pt not accepting; change to Ensure Enlive if pt accepting of ONS and PO intake of meals does not improve 3) [place] food preferences: almond milk and cheerios BIDLD 4) Encourage PO intake 5) Bowel care per MD 6) Weekly scaled weights Addendum: 06/03/21 at [address] Amended: Links added.
[2021-06-03 18:00] VITALS: BP 122/77
--- NOTE | 2021-06-03 18:43 | NUR ---
Problems reprioritized. Patient report given, questions answered & plan of care reviewed with Cystal RN.
[2021-06-03] MEDS: K and/or MAG REPLACEMENT MC SCH (20:00)
[2021-06-03] MEDS: psyllium seed 3.4 gm packet PO SCH (20:10)
[2021-06-03 22:00] VITALS: BP 126/80
[2021-06-04] MEDS: potassium CL 10mEq/100ml bag 100 ML IV PRN ×5 (00:43→14:13)
[2021-06-04] MEDS: simethicone 80mg chew tab PO PRN ×3 (00:43→21:47)
[2021-06-04 02:00] VITALS: BP 125/80
[2021-06-04 04:14] LABS: BASOPHILS % (AUTO) 0.4 % (0-1); EOSINOPHILS # (AUTO) 0.1 X10'3 (0-0.9); EOSINOPHILS % (AUTO) 1.9 % (0-6); HEMATOCRIT 32.7 % (42.0-52.0); HEMOGLOBIN 11.3 g/dl (14.0-17.9); LYMPHOCYTES # (AUTO) 0.3 X10'3 (1.1-4.8); LYMPHOCYTES % (AUTO) 7.9 % (21-51); MEAN CORPUSCULAR HEMOGLOBIN 36.5 PG (27.0-31.0); MEAN CORPUSCULAR HGB CONC 34.7 g/dL (33.0-36.5); MEAN CORPUSCULAR VOLUME 105.1 FL (78-98); MEAN PLATELET VOLUME 7.4 FL (7.4-10.4); MONOCYTES # (AUTO) 0.5 X10'3 (0-0.9); MONOCYTES % (AUTO) 13.9 % (2-12); NEUTROPHILS # (AUTO) 2.9 X10'3 (1.8-7.7); NEUTROPHILS % (AUTO) 75.9 % (42-75); PLATELET COUNT 176 X10'3 (140-440); RED BLOOD COUNT 3.11 X10'6 (4.70-6.10); RED CELL DISTRIBUTION WIDTH 16.8 % (11.5-14.5); WHITE BLOOD COUNT 3.8 X10'3 (4.5-11.0)
[2021-06-04 04:16] LABS: ALBUMIN 2.8 G/DL (3.4-5.0); ANION GAP 6 (8-16); BLOOD UREA NITROGEN 15 MG/DL (7-18); BUN/CREATININE RATIO 26.8 (5.4-32.0); CALCIUM 8.4 MG/DL (8.5-10.1); CHLORIDE 102 MMOL/L (99-107); CREATININE 0.56 MG/DL (0.60-1.10); GLUCOSE 107 MG/DL (70-104); POTASSIUM 3.3 MMOL/L (3.5-5.1); SODIUM 133 MMOL/L (135-145); TOTAL CARBON DIOXIDE 24.8 MMOL/L (24-32); eGFR > 90 ML/MIN
--- NOTE | 2021-06-04 06:51 | NUR ---
Dr Tenorio accessed Right chest port, x4 potassium 10 meq bags given per protocal. Pt complained of gas, Notified call out operator MD, received order for simethicone PRN. Morning labs drawn and sent to lab. Pt encouraged to ambulate. stool sent for c-dif. Pt is now on pending c-diff precautions .
[2021-06-04 07:00] VITALS: BP 122/76
[2021-06-04] MEDS: K and/or MAG REPLACEMENT MC SCH ×2 (08:00→20:00)
[2021-06-04] MEDS: lactose-reduced food (Ensure High Protein) 237ml bottle PO SCH ×3 (08:00→14:15)
[2021-06-04] MEDS: heparin, porcine 5000 units/ml vial SQ SCH ×2 (09:45→20:00)
[2021-06-04 09:56] LABS: C DIFF SPECIMEN=DIARRHEA? ACCEPTABLE; C DIFFICILE TOXINS A&B NEGATIVE (Neg)
[2021-06-04 11:00] VITALS: BP 108/69
[2021-06-04] MEDS: normal saline 1000ml 1,000 ML IV SCH (11:19)
[2021-06-04] MEDS: loperamide 2mg capsule PO SCH ×2 (12:57→20:00)
[2021-06-04] MEDS ORDERED: ketorolac trometh. 30mg/ml inj. IV ONE (17:10)
[2021-06-04 18:00] VITALS: BP 129/86
--- NOTE | 2021-06-04 18:30 | NUR ---
Patient complaining of increased abdominal pain which has been building through the day. Mylicon chew given around lunch time, laura about 1630 with no relief. I called Dr Tenorio and he says this far out of surgery patient should not be needing pain meds, he dc'd norco but agreed to a 1x toradol 15mg which was given and seemed to have given some relief. Patient initially complained of 10/10 pain and now says its a 1/10. is very anxious and trying very hard to direct care out of concern. Dr Murcia alerted too that patient is still painful but unsure what to do at this point. Patient at time of shift change is comfortable. Charlene RN, GERI RN to take over care of patient.
[2021-06-04] MEDS: psyllium seed 3.4 gm packet PO SCH (21:00)
[2021-06-04 22:00] VITALS: BP 133/83
[2021-06-05 02:00] VITALS: BP 124/76
[2021-06-05 06:00] VITALS: BP 124/75
--- NOTE | 2021-06-05 06:30 | NUR ---
Problems reprioritized. Patient report given, questions answered & plan of care reviewed with LINDA.
--- NOTE | 2021-06-05 06:41 | NUR ---
Problems reprioritized. Patient report received, questions answered & plan of care reviewed with JUAN RUTH.
[2021-06-05 07:11] LABS: BASOPHILS % (AUTO) 0.9 % (0-1); EOSINOPHILS # (AUTO) 0.1 X10'3 (0-0.9); EOSINOPHILS % (AUTO) 2.3 % (0-6); HEMATOCRIT 31.7 % (42.0-52.0); HEMOGLOBIN 11.1 g/dl (14.0-17.9); LYMPHOCYTES # (AUTO) 0.3 X10'3 (1.1-4.8); MEAN CORPUSCULAR HEMOGLOBIN 36.9 PG (27.0-31.0); MEAN CORPUSCULAR HGB CONC 35.1 g/dL (33.0-36.5); MEAN CORPUSCULAR VOLUME 105.1 FL (78-98); MEAN PLATELET VOLUME 7.7 FL (7.4-10.4); MONOCYTES # (AUTO) 0.6 X10'3 (0-0.9); MONOCYTES % (AUTO) 15.7 % (2-12); NEUTROPHILS # (AUTO) 2.6 X10'3 (1.8-7.7); NEUTROPHILS % (AUTO) 72.1 % (42-75); PLATELET COUNT 189 X10'3 (140-440); RED BLOOD COUNT 3.01 X10'6 (4.70-6.10); RED CELL DISTRIBUTION WIDTH 16.3 % (11.5-14.5); WHITE BLOOD COUNT 3.6 X10'3 (4.5-11.0)
[2021-06-05 07:25] LABS: ALBUMIN 2.7 G/DL (3.4-5.0); ANION GAP 5 (8-16); BLOOD UREA NITROGEN 11 MG/DL (7-18); BUN/CREATININE RATIO 19.3 (5.4-32.0); C-REACTIVE PROTEIN 0.87 MG/DL (0.0-0.5); CALCIUM 8.4 MG/DL (8.5-10.1); CHLORIDE 104 MMOL/L (99-107); CREATININE 0.57 MG/DL (0.60-1.10); GLUCOSE 108 MG/DL (70-104); MAGNESIUM 1.8 MG/DL (1.5-2.4); PHOSPHORUS 4.1 MG/DL (2.3-4.5); SODIUM 131 MMOL/L (135-145); TOTAL CARBON DIOXIDE 22.3 MMOL/L (24-32); eGFR > 90 ML/MIN
[2021-06-05] MEDS: loperamide 2mg capsule PO SCH ×2 (07:39→20:00)
[2021-06-05] MEDS: normal saline 1000ml 1,000 ML IV SCH (07:40)
[2021-06-05] MEDS: heparin, porcine 5000 units/ml vial SQ SCH ×2 (07:40→20:00)
[2021-06-05] MEDS: lactose-reduced food (Ensure High Protein) 237ml bottle PO SCH ×3 (07:45→18:57)
[2021-06-05 07:46] LABS: POTASSIUM 2.7 MMOL/L (3.5-5.1)
[2021-06-05] MEDS: K and/or MAG REPLACEMENT MC SCH ×2 (08:00→20:00)
--- NOTE | 2021-06-05 08:00 | NUR ---
potassium is 2.7 unable to reach the MD. replacement iv potassium will be administer.
[2021-06-05 09:14] LABS: ANISOCYTOSIS 1+; PLATELET ESTIMATE NORMAL; TOTAL CELLS COUNTED 100
[2021-06-05] MEDS: potassium CL 10mEq/100ml bag 100 ML IV PRN ×8 (09:18→21:14)
[2021-06-05] MEDS: simethicone 80mg chew tab PO PRN ×2 (09:30→17:10)
--- NOTE | 2021-06-05 12:18 | NUR ---
PAGE SENT 313, JAYME NEW, PT CAN'T HAVE DAIRY OR GLUTEN. PT ISN'T DRINKING HIS ENSURE. THANK YOU, BLANCA Duggan [phone]
--- NOTE | 2021-06-05 12:26 | NUR ---
RN page: Pt refusing Ensures; NEERAJ d/w RN regarding Ensures are lactose-free. RN notified pt ONS is lactose free but pt declines ONS at this time reports "messing w/ stomach" per RN. Noted 50% PO breakfast ONS though pt reports drank none this AM per RN; likely error. NEERAJ d/w RN regarding stopping ONS if MD agreeable given pt refusal to prevent ONS wasting. Addendum: 06/05/21 at [address] Amended: Links added.
--- NOTE | 2021-06-05 13:40 | NUR ---
potassium level 2.7. x4 potassium 10 meq bags given per protocal. lab draw order for 1530.
[2021-06-05 13:57] VITALS: BP 102/76
[2021-06-05 14:00] VITALS: BP 117/72
[2021-06-05 14:35] LABS: ALBUMIN 2.8 G/DL (3.4-5.0); ANION GAP 9 (8-16); BLOOD UREA NITROGEN 12 MG/DL (7-18); BUN/CREATININE RATIO 16.4 (5.4-32.0); CHLORIDE 104 MMOL/L (99-107); CREATININE 0.73 MG/DL (0.60-1.10); GLUCOSE 125 MG/DL (70-104); POTASSIUM 3.2 MMOL/L (3.5-5.1); PREALBUMIN 14.3 MG/DL (19-36); SODIUM 137 MMOL/L (135-145); TOTAL CARBON DIOXIDE 24.4 MMOL/L (24-32); eGFR > 90 ML/MIN
--- NOTE | 2021-06-05 15:55 | NUR ---
potassium level 3.2. order received from DR Tenorio for x4 potassium 10 meq bags . lab draw in the morning.
--- NOTE | 2021-06-05 17:46 | NUR ---
Patient stable no complaint voiced at this time.
[2021-06-05 18:00] VITALS: BP 116/75
[2021-06-05] MEDS: psyllium seed 3.4 gm packet PO SCH (21:00)
[2021-06-05 22:00] VITALS: BP 122/79
[2021-06-06 02:00] VITALS: BP 122/79
[2021-06-06] MEDS: normal saline 1000ml 1,000 ML IV SCH (03:04)
[2021-06-06 06:00] VITALS: BP 124/75
--- NOTE | 2021-06-06 06:21 | NUR ---
Problems reprioritized. Patient report given, questions answered & plan of care reviewed with
[2021-06-06] MEDS: loperamide 2mg capsule PO SCH ×2 (07:31→20:15)
[2021-06-06] MEDS: simethicone 80mg chew tab PO PRN ×3 (07:31→20:15)
[2021-06-06] MEDS: heparin, porcine 5000 units/ml vial SQ SCH ×2 (07:32→20:15)
[2021-06-06] MEDS: K and/or MAG REPLACEMENT MC SCH ×2 (08:00→20:00)
--- NOTE | 2021-06-06 09:29 | NUR ---
Page Sent PAGER ID: [phone] MESSAGE: EMERY [phone]: JAYME NEW 313...CAN I GET A ORDER FOR NEW LABS CBC & CMP? THANK YOU :)
[2021-06-06 10:00] VITALS: BP 126/80
--- NOTE | 2021-06-06 11:37 | NUR ---
Left msg for Dr. Tenorio regarding director of regional sales request. Civil Engineering Designer is requesting starting pt on B12, folic acid and a multivitamin supplement. Will watch for orders.
--- NOTE | 2021-06-06 12:35 | NUR ---
Nutrition Consult "pt w/ malnutrition, diet restrictions, and diarrhea": Pt s/p Ileostomy reversal w/ continued frequent diarrhea post-op per EMR. PO ~43% avg low-fiber diet partially meeting needs; now to receive Ensure Clear TIDWM as pt preference starting today per MD. Pt/SO seen by RD at bedside; pt reports wt loss since initial ileostomy surgery while continuing on chemotherapy ~20 pounds past 6 months enforced by wt hx 72.8kg December 20 currently 64.5kg 11.5% severe loss 6 months. Pt reports drank protein supplements BID at home and continued to exercise though unable to consume enough kcals to maintain wt on chemo w/ last treatment 05/08/21. Pt reports follows no gluten/lactose/added sugar, and no artificial sweetener diet at home. Notable mild temporal/buccal wasting visibly evident during RD visit; given PO hx, wt loss hx, and visible muscle/fat loss pt meets severe malnutrition criteria; MD notified. Wt loss likely combination of chemo, GI surgery hx, and personal dietary restrictions inhibiting typical calorie-dense food sources. RD d/w pt/SO diet strategies to assist thickening stool i.e. gluten free bread/toast, white rice, applesauce, bananas, etc. Pt is agreeable to rice BIDLD, applesauce WB, and toast TIDWM; dietary notified. Noted pt HS metamucil held past two nights RD d/w pt who reports metamucil didn't assist w/ diarrhea resolution. Imodium BID started 06/04 per EMR. Also noted MCV 105.1; RD d/w RN regarding B12, folic acid, and MVI supplementation if MD agreeable given GI surgery/chemo hx. Will continue to monitor for further nutrition intervention needs. Recommendations: 1) Continue low fiber diet 2) Ensure Clear TIDWM per MD/pt preferences; Encourage PO meals/ONS 3) [place] food preferences: no lactose/gluten, almond milk and cheerios BIDLD 4) applesauce WB, rice BIDLD, gluten free toast TIDWM to assist w/ thickening stool 5) routine anti-diarrheal per MD 6) B12, folic acid, MVI supplementation if MD agreeable given GI surgery/chemo hx; MCV 105.1 06/06 7) Weekly scaled weights Addendum: 06/06/21 at [address] Amended: Links added.
[2021-06-06 12:54] LABS: BASOPHILS % (AUTO) 0.5 % (0-1); EOSINOPHILS # (AUTO) 0.1 X10'3 (0-0.9); EOSINOPHILS % (AUTO) 1.3 % (0-6); HEMATOCRIT 35.6 % (42.0-52.0); HEMOGLOBIN 12.2 g/dl (14.0-17.9); LYMPHOCYTES # (AUTO) 0.3 X10'3 (1.1-4.8); LYMPHOCYTES % (AUTO) 6.4 % (21-51); MEAN CORPUSCULAR HEMOGLOBIN 36.4 PG (27.0-31.0); MEAN CORPUSCULAR HGB CONC 34.3 g/dL (33.0-36.5); MEAN CORPUSCULAR VOLUME 106.1 FL (78-98); MEAN PLATELET VOLUME 7.2 FL (7.4-10.4); MONOCYTES # (AUTO) 0.6 X10'3 (0-0.9); MONOCYTES % (AUTO) 12.1 % (2-12); NEUTROPHILS % (AUTO) 79.7 % (42-75); PLATELET COUNT 267 X10'3 (140-440); RED BLOOD COUNT 3.36 X10'6 (4.70-6.10); RED CELL DISTRIBUTION WIDTH 16.6 % (11.5-14.5)
[2021-06-06] MEDS: NUT.TX.IMPAIRED DIGEST FXN (Ensure Clear) 237 ML PO SCH ×2 (13:00→18:00)
[2021-06-06 13:04] LABS: ALANINE AMINOTRANSFERASE 82 U/L (12-78); ALBUMIN 3.2 G/DL (3.4-5.0); ALKALINE PHOSPHATASE 72 IU/L (46-116); ANION GAP 12 (8-16); ASPARTATE AMINO TRANSFERASE 46 U/L (10-37); BILIRUBIN,TOTAL 0.7 MG/DL (0.1-1.0); BLOOD UREA NITROGEN 10 MG/DL (7-18); BUN/CREATININE RATIO 12.5 (5.4-32.0); C-REACTIVE PROTEIN 1.75 MG/DL (0.0-0.5); CALCIUM 8.3 MG/DL (8.5-10.1); CHLORIDE 102 MMOL/L (99-107); GLUCOSE 120 MG/DL (70-104); MAGNESIUM 1.7 MG/DL (1.5-2.4); PHOSPHORUS 3.2 MG/DL (2.3-4.5); SODIUM 137 MMOL/L (135-145); TOTAL CARBON DIOXIDE 22.9 MMOL/L (24-32); TOTAL PROTEIN 6.5 G/DL (6.4-8.2); eGFR > 90 ML/MIN
[2021-06-06 13:07] LABS: POTASSIUM 2.8 MMOL/L (3.5-5.1)
[2021-06-06] MEDS ORDERED: potassium CL 10mEq/100ml bag 100 ML IV PRN (13:10)
[2021-06-06] MEDS ORDERED: magnesium 4gm in 100ml NS 100 ML IV PRN (13:10)
[2021-06-06] MEDS ORDERED: potassium Cl 40MEQ/250ML bag 250 ML IV PRN (13:10)
[2021-06-06] MEDS ORDERED: potassium Cl 40MEQ/1/2NS 520ml 520 ML IV PRN (13:10)
[2021-06-06] MEDS ORDERED: magnesium 2GM in 50ml NS 50 ML IV PRN (13:10)
[2021-06-06] MEDS: folic acid 0.4mg tablet PO SCH (13:40)
[2021-06-06] MEDS: multivitamins, therapeutics tablet PO SCH (13:40)
[2021-06-06] MEDS: cyanocobalamin 500mcg tablet PO SCH (13:40)
[2021-06-06] MEDS: potassium Cl 20mEq/100mL bag 100 ML IV PRN ×6 (13:41→23:59)
[2021-06-06 14:00] VITALS: BP 120/76
[2021-06-06 19:06] VITALS: BP 120/74
[2021-06-06] MEDS ORDERED: ketorolac trometh. 30mg/ml inj. IV ONE (22:05)
[2021-06-06 22:47] VITALS: BP 137/79
[2021-06-07] MEDS: potassium Cl 20mEq/100mL bag 100 ML IV PRN ×4 (01:27→11:25)
[2021-06-07 02:00] VITALS: BP 124/74
[2021-06-07] MEDS: simethicone 80mg chew tab PO PRN ×4 (05:21→23:29)
[2021-06-07 06:00] VITALS: BP 121/70
--- NOTE | 2021-06-07 06:28 | NUR ---
Problems reprioritized. Patient report given, questions answered & plan of care reviewed with JUAN DIAZ.
[2021-06-07 07:22] LABS: POTASSIUM 3.3 MMOL/L (3.5-5.1)
[2021-06-07] MEDS: K and/or MAG REPLACEMENT MC SCH ×2 (08:00→20:00)
[2021-06-07] MEDS: folic acid 0.4mg tablet PO SCH (08:20)
[2021-06-07] MEDS: loperamide 2mg capsule PO SCH ×2 (08:21→20:36)
[2021-06-07] MEDS: multivitamins, therapeutics tablet PO SCH (08:21)
[2021-06-07] MEDS: heparin, porcine 5000 units/ml vial SQ SCH ×2 (08:40→20:37)
[2021-06-07] MEDS: cyanocobalamin 500mcg tablet PO SCH (08:43)
[2021-06-07] MEDS: normal saline 1000ml 1,000 ML IV SCH ×2 (08:43→19:04)
[2021-06-07] MEDS: NUT.TX.IMPAIRED DIGEST FXN (Ensure Clear) 237 ML PO SCH ×3 (08:47→18:00)
--- NOTE | 2021-06-07 09:43 | NUR ---
Per Dr Murcia Give PRN K as follows: total 2 bags of 20meQ then 40meq kdur, check K lab 2 hours later. NO SCHED K REPLACEMENT AT THIS TIME per Dr Murcia.
[2021-06-07 10:00] VITALS: BP 113/77
--- NOTE | 2021-06-07 11:59 | NUR ---
pt was able to take shower and linen change.
[2021-06-07] MEDS ORDERED: potassium Cl 20 mEq SR tablet PO ONE (13:05)
[2021-06-07 15:00] VITALS: BP 124/74
[2021-06-07 18:00] VITALS: BP 116/74
--- NOTE | 2021-06-07 20:17 | NUR ---
Spoke with MD Gallardo regarding Potassium replacement orders. Patient is requesting for further doses of potassium be replaced by PO this evening rather than by IV. Discussed with MD with orders received to place new order for 40 mEq potassium now and repeat in 4 hours with lab re-check in AM. Notified primary care nurse of new orders.
[2021-06-07] MEDS: potassium Cl 20 mEq SR tablet PO SCH (20:37)
[2021-06-07 22:00] VITALS: BP 122/80
[2021-06-08] MEDS: potassium Cl 20 mEq SR tablet PO SCH (00:48)
[2021-06-08 02:00] VITALS: BP 120/70
[2021-06-08] MEDS: simethicone 80mg chew tab PO PRN ×3 (05:28→21:14)
[2021-06-08 06:00] VITALS: BP 111/70
--- NOTE | 2021-06-08 06:06 | NUR ---
Problems reprioritized. Patient report given, questions answered & plan of care reviewed with Brandie MARTINEZ.
[2021-06-08] MEDS: K and/or MAG REPLACEMENT MC SCH ×2 (08:00→20:00)
[2021-06-08] MEDS: NUT.TX.IMPAIRED DIGEST FXN (Ensure Clear) 237 ML PO SCH ×3 (08:00→17:58)
[2021-06-08] MEDS: heparin, porcine 5000 units/ml vial SQ SCH ×2 (08:51→20:33)
[2021-06-08] MEDS: folic acid 0.4mg tablet PO SCH (08:51)
[2021-06-08] MEDS: multivitamins, therapeutics tablet PO SCH (08:52)
[2021-06-08] MEDS: potassium Cl 20 mEq SR tablet PO PRN ×4 (08:54→21:14)
[2021-06-08] MEDS: cyanocobalamin 500mcg tablet PO SCH (08:55)
[2021-06-08] MEDS: loperamide 2mg capsule PO SCH ×4 (09:08→21:14)
[2021-06-08 09:44] LABS: BASOPHILS % (AUTO) 0.8 % (0-1); EOSINOPHILS # (AUTO) 0.1 X10'3 (0-0.9); EOSINOPHILS % (AUTO) 1.8 % (0-6); HEMATOCRIT 32.9 % (42.0-52.0); HEMOGLOBIN 11.2 g/dl (14.0-17.9); LYMPHOCYTES # (AUTO) 0.3 X10'3 (1.1-4.8); LYMPHOCYTES % (AUTO) 6.4 % (21-51); MEAN CORPUSCULAR HEMOGLOBIN 36.1 PG (27.0-31.0); MEAN CORPUSCULAR VOLUME 106.2 FL (78-98); MONOCYTES # (AUTO) 0.6 X10'3 (0-0.9); MONOCYTES % (AUTO) 13.5 % (2-12); NEUTROPHILS # (AUTO) 3.5 X10'3 (1.8-7.7); NEUTROPHILS % (AUTO) 77.5 % (42-75); PLATELET COUNT 291 X10'3 (140-440); RED BLOOD COUNT 3.09 X10'6 (4.70-6.10); RED CELL DISTRIBUTION WIDTH 16.2 % (11.5-14.5); WHITE BLOOD COUNT 4.5 X10'3 (4.5-11.0)
[2021-06-08 09:54] LABS: ALANINE AMINOTRANSFERASE 55 U/L (12-78); ALBUMIN 2.9 G/DL (3.4-5.0); ALBUMIN/GLOBULIN RATIO 0.9 (1.1-1.5); ALKALINE PHOSPHATASE 60 IU/L (46-116); ANION GAP 10 (8-16); ASPARTATE AMINO TRANSFERASE 23 U/L (10-37); BILIRUBIN,TOTAL 0.6 MG/DL (0.1-1.0); BLOOD UREA NITROGEN 10 MG/DL (7-18); BUN/CREATININE RATIO 13.9 (5.4-32.0); C-REACTIVE PROTEIN 2.28 MG/DL (0.0-0.5); CALCIUM 8.2 MG/DL (8.5-10.1); CHLORIDE 107 MMOL/L (99-107); CREATININE 0.72 MG/DL (0.60-1.10); GLUCOSE 89 MG/DL (70-104); POTASSIUM 3.3 MMOL/L (3.5-5.1); SODIUM 139 MMOL/L (135-145); TOTAL CARBON DIOXIDE 22.2 MMOL/L (24-32); eGFR > 90 ML/MIN
[2021-06-08 10:00] VITALS: BP 104/67
[2021-06-08] MEDS ORDERED: heparin sodium, porcine/PF 100unit/ml 5ML syringe IV ONE (10:15)
--- NOTE | 2021-06-08 11:37 | NUR ---
PAGER ID: [phone] MESSAGE: [phone]. Tobin Ibarra. Pt is ready for you to see him. Brandie Thomas [phone]
[2021-06-08 12:22] VITALS: BP 104/67
--- NOTE | 2021-06-08 12:32 | NUR ---
Deaccessed amie cath to R chest with 20ml NS flush and 5ml 100:1 Heparin flush per orders/protocol and removed tubing needle intact. bandaide applied to R chest amie cath site. Pt tolerated procedure well.
[2021-06-08] MEDS ORDERED: loperamide 2mg capsule PO SCH (13:00)
[2021-06-08 15:00] VITALS: BP 112/68
[2021-06-08] MEDS: CITRUCEL PO SCH (20:32)
[2021-06-08 22:00] VITALS: BP 107/65
[2021-06-09] MEDS: potassium Cl 20 mEq SR tablet PO PRN ×3 (00:46→09:32)
[2021-06-09 02:00] VITALS: BP 120/78
[2021-06-09] MEDS: simethicone 80mg chew tab PO PRN ×4 (03:43→22:01)
[2021-06-09 06:00] VITALS: BP 115/70
--- NOTE | 2021-06-09 06:28 | NUR ---
Problems reprioritized. Patient report given, questions answered & plan of care reviewed with Brandie MARTINEZ.
--- NOTE | 2021-06-09 06:30 | NUR ---
Patient in room MED 313. I have received report from JUAN Abdi and had the opportunity to ask questions and assume patient care.
[2021-06-09] MEDS ORDERED: diphenoxylate/atropine 2.5mg/0.025mg per 5ml oral solution PO PRN (07:05)
[2021-06-09 08:00] LABS: ALBUMIN 2.5 G/DL (3.4-5.0); ANION GAP 8 (8-16); BLOOD UREA NITROGEN 6 MG/DL (7-18); CHLORIDE 111 MMOL/L (99-107); CREATININE 0.67 MG/DL (0.60-1.10); GLUCOSE 94 MG/DL (70-104); POTASSIUM 3.6 MMOL/L (3.5-5.1); SODIUM 142 MMOL/L (135-145); TOTAL CARBON DIOXIDE 22.8 MMOL/L (24-32); eGFR > 90 ML/MIN
[2021-06-09] MEDS: K and/or MAG REPLACEMENT MC SCH ×2 (08:00→20:00)
[2021-06-09] MEDS: NUT.TX.IMPAIRED DIGEST FXN (Ensure Clear) 237 ML PO SCH ×3 (08:00→18:39)
[2021-06-09] MEDS: heparin, porcine 5000 units/ml vial SQ SCH ×2 (09:33→20:53)
[2021-06-09] MEDS: loperamide 2mg capsule PO SCH ×4 (09:33→20:53)
[2021-06-09] MEDS: multivitamins, therapeutics tablet PO SCH (09:33)
[2021-06-09] MEDS: CITRUCEL PO SCH ×2 (09:33→20:54)
[2021-06-09] MEDS: cyanocobalamin 500mcg tablet PO SCH (09:34)
[2021-06-09] MEDS: folic acid 0.4mg tablet PO SCH (09:35)
[2021-06-09 10:00] VITALS: BP 102/61
[2021-06-09] MEDS: potassium chloride 8mEq ER tablet PO SCH ×2 (12:41→17:53)
[2021-06-09] MEDS: diphenoxylate/atropine tablet (Lomotil) PO PRN (13:05)
--- NOTE | 2021-06-09 13:12 | NUR ---
Nutrition Consult "Pt experiencing diarrhea s/p ileostomy reversal": RD recently consulted regarding diarrhea, see previous note. RD d/w RN foods appropriate for low fiber diet restriction. PO intake ~48% avg of low fiber diet though ~65% avg of last [address] d/w RN pt ONS intake, foods appropriate for low fiber diet, and foods that may assist in improving diarrhea. RN stated pt usually drinks ~50% of Ensure clear ONS, though intake not documented. RN stated pt would like more gluten free bread and bananas TIDWM, dietary notified. Overall pt partially meeting estimated nutritional needs. RD d/w RN recommendation for new serum Mg lab if MD agreeable given diarrhea and Mg trending down 06/06 per EMR. LBM 06/08, noted imodium frequency changed to QID and dose was doubled from previously per EMR. Will continue to monitor. Recommendations: 1) Continue low fiber diet 2) Ensure Clear TIDWM per MD/pt preferences; Encourage PO intake of meals/ONS 3) [place] food preferences: no lactose/gluten, almond milk and cheerios Addendum: 06/09/21 at [address]13 [address] Lamine Fitzgeraldetic Intern RD Amended: Links added. Addendum: 06/09/21 at [address] I have reviewed and agree with note by Oil Transport DriverPuja Hoover RD
[2021-06-09 14:00] VITALS: BP 110/64
[2021-06-09 18:00] VITALS: BP 105/61
--- NOTE | 2021-06-09 18:38 | NUR ---
Problems reprioritized. Patient report given, questions answered & plan of care reviewed with JUAN Bravo.
--- NOTE | 2021-06-09 18:43 | NUR ---
[place] documentation: I have reviewed and agree with all interventions, assessments performed and documented by JUAN Darby.
--- NOTE | 2021-06-09 18:55 | NUR ---
Patient in room MED 313. I have received report from Mehnaz RN orientee with Nereida MARTINEZ and had the opportunity to ask questions and assume patient care.
[2021-06-09 22:00] VITALS: BP 115/68
[2021-06-10 02:00] VITALS: BP 105/65
[2021-06-10] MEDS: diphenoxylate/atropine tablet (Lomotil) PO PRN ×3 (03:51→21:08)
[2021-06-10 06:00] VITALS: BP 110/66
[2021-06-10 06:27] LABS: ALBUMIN 2.5 G/DL (3.4-5.0); ANION GAP 5 (8-16); BLOOD UREA NITROGEN 3 MG/DL (7-18); BUN/CREATININE RATIO 5.4 (5.4-32.0); CALCIUM 7.9 MG/DL (8.5-10.1); CHLORIDE 111 MMOL/L (99-107); CREATININE 0.56 MG/DL (0.60-1.10); GLUCOSE 93 MG/DL (70-104); MAGNESIUM 1.7 MG/DL (1.5-2.4); PHOSPHORUS 3.7 MG/DL (2.3-4.5); POTASSIUM 3.1 MMOL/L (3.5-5.1); SODIUM 140 MMOL/L (135-145); eGFR > 90 ML/MIN
--- NOTE | 2021-06-10 06:46 | NUR ---
Problems reprioritized. Patient report given, questions answered & plan of care reviewed with Jessica MARTINEZ.
--- NOTE | 2021-06-10 06:57 | NUR ---
Patient in room MED 313. I have received report from Shelly MARTINEZ and had the opportunity to ask questions and assume patient care.
[2021-06-10] MEDS: NUT.TX.IMPAIRED DIGEST FXN (Ensure Clear) 237 ML PO SCH ×3 (08:00→15:59)
[2021-06-10] MEDS: K and/or MAG REPLACEMENT MC SCH ×2 (08:00→20:00)
[2021-06-10] MEDS: folic acid 0.4mg tablet PO SCH (08:44)
[2021-06-10] MEDS: multivitamins, therapeutics tablet PO SCH (08:44)
[2021-06-10] MEDS: cyanocobalamin 500mcg tablet PO SCH (08:45)
[2021-06-10] MEDS: loperamide 2mg capsule PO SCH ×4 (08:46→21:00)
[2021-06-10] MEDS: potassium chloride 8mEq ER tablet PO SCH ×3 (08:47→17:19)
[2021-06-10] MEDS: CITRUCEL PO SCH ×2 (08:48→19:48)
[2021-06-10] MEDS: heparin, porcine 5000 units/ml vial SQ SCH ×2 (08:54→19:53)
[2021-06-10] MEDS: simethicone 80mg chew tab PO PRN ×2 (09:52→16:04)
[2021-06-10 10:00] VITALS: BP 114/68
[2021-06-10 14:00] VITALS: BP 109/68
--- NOTE | 2021-06-10 17:58 | NUR ---
Problems reprioritized. Patient report given, questions answered & plan of care reviewed with Shelly MARTINEZ.
[2021-06-10 18:00] VITALS: BP 116/70
--- NOTE | 2021-06-10 18:40 | NUR ---
Patient in room MED 313. I have received report from SOY MARTINEZ and had the opportunity to ask questions and assume patient care.
[2021-06-10] MEDS ORDERED: Melatonin 3mg tablet PO SCH (21:00)
--- NOTE | 2021-06-10 21:28 | NUR ---
DR. VALENCIA IN TO SEE PATIENT NOW. WILL MONITOR FOR ORDERS.
[2021-06-10 22:00] VITALS: BP 115/71
[2021-06-11 02:00] VITALS: BP 112/63
--- NOTE | 2021-06-11 03:45 | NUR ---
2100 IMODIUM SCHEDULED FOR THIS TIME NOT GIVEN, EARLY SHIFT RN GAVE HER AFTERNOON DOSE LATE. I DID ADMINISTER LOMOTIL HOWEVER. PATIENT IS IN THE SHOWER NOW, HAD LARGE BM IN BED, LINEN CHANGED. WILL ADMINISTER ANOTHER DOSE OF LOMOTIL WHEN PATIENT IS BACK TO BED
--- NOTE | 2021-06-11 06:39 | NUR ---
Problems reprioritized. Patient report given, questions answered & plan of care reviewed with CATHERINE MARTINEZ.
--- NOTE | 2021-06-11 06:41 | NUR ---
Patient in room MED 313. I have received report from Shelly MARTINEZ and had the opportunity to ask questions and assume patient care.
[2021-06-11 07:07] LABS: ALBUMIN 2.5 G/DL (3.4-5.0); ANION GAP 3 (8-16); BLOOD UREA NITROGEN 4 MG/DL (7-18); BUN/CREATININE RATIO 6.7 (5.4-32.0); CALCIUM 7.7 MG/DL (8.5-10.1); CHLORIDE 110 MMOL/L (99-107); GLUCOSE 95 MG/DL (70-104); SODIUM 137 MMOL/L (135-145); TOTAL CARBON DIOXIDE 24.5 MMOL/L (24-32); eGFR > 90 ML/MIN
[2021-06-11 07:16] VITALS: BP 100/63
[2021-06-11 07:19] LABS: POTASSIUM 2.9 MMOL/L (3.5-5.1)
[2021-06-11] MEDS: K and/or MAG REPLACEMENT MC SCH ×2 (07:21→20:00)
--- NOTE | 2021-06-11 07:28 | NUR ---
PAGER ID: [phone] MESSAGE: [phone] ISABEL FRENCHERY PATIENT K IS 2.[address] [place] [phone]
[2021-06-11] MEDS: NUT.TX.IMPAIRED DIGEST FXN (Ensure Clear) 237 ML PO SCH ×2 (08:00→13:00)
[2021-06-11] MEDS: CITRUCEL PO SCH ×2 (08:00→20:18)
[2021-06-11] MEDS: loperamide 2mg capsule PO SCH ×4 (08:46→20:18)
[2021-06-11] MEDS: folic acid 0.4mg tablet PO SCH (08:46)
[2021-06-11] MEDS: cyanocobalamin 500mcg tablet PO SCH (08:46)
[2021-06-11] MEDS: multivitamins, therapeutics tablet PO SCH (08:46)
[2021-06-11] MEDS: potassium Cl 20 mEq SR tablet PO PRN ×2 (08:46→08:52)
[2021-06-11] MEDS: diphenoxylate/atropine tablet (Lomotil) PO PRN ×3 (08:46→20:17)
[2021-06-11] MEDS: heparin, porcine 5000 units/ml vial SQ SCH ×2 (08:47→20:18)
[2021-06-11] MEDS: potassium chloride 8mEq ER tablet PO SCH (08:52)
[2021-06-11 11:00] VITALS: BP 115/73
--- NOTE | 2021-06-11 11:30 | NUR ---
SPOKE WITH DR. MORTON HE WANTED ME TO CALL DR. VALENCIA TO FIND OUT IF IT WAS OK TO SEND PATIENT HOME WITH A LOW K.
[2021-06-11] MEDS ORDERED: potassium Cl 10 mEq/100mL bag IV ONE ×2 (11:40→17:55)
--- NOTE | 2021-06-11 12:13 | NUR ---
SPOKE WITH DR. VALENCIA HE STATED HE IS NOT OK WITH THE PATIENT GOING HOME WITH A CHRONICALLY LOW POTASSIUM. HE WANTS TO FIND OUT WHY. I CALLED DIETARY AND LEFT A MESSAGE, ORDERED 40MEQ IV PER DR. VALENCIA AND WILL RETEST TODAY AT 1600.
--- NOTE | 2021-06-11 12:49 | NUR ---
ASKED PATIENT HOW MANY BOWEL MOVEMENTS HE HAD TODAY HE STATED FIVE. DIETARY HERE TO TALK AND EDUCATE PATIENT. Addendum: 06/11/21 at 1251 by Janet Paz RN CALLED AND LET DR. VALENCIA KNOW
[2021-06-11] MEDS: potassium CL 10mEq/100ml bag 100 ML IV SCH ×4 (12:55→17:44)
--- NOTE | 2021-06-11 13:47 | NUR ---
Reassessment: Pt continues on low fiber diet w/ avg intake 61% x 8 meals partially meeting needs. Pt reports that he is no longer wanting Ensure Clears, pt now agreeable to Ensure Enlive, d/w RN. RD had very in depth discussion w/ pt/SO regarding pt's dietary struggles during his cancer treatments and previous ileostomy. Advised pt on recommended dietary habits moving forward. Also provided pt/SO w/ list of high potassium foods. Pt is having frequent loose stools (5 today) which may be influencing his low serum K. Will continue to follow closely and make recommendations as appropriate. Recommendations: 1) Continue low fiber diet 2) Ensure Clear TIDWM; recommend change to Ensure Enlive as pt is acceptable and has higher potassium content 3) [place] food preferences: no lactose/gluten, almond milk and cheerios BIDLD, bananas TIDWM, applesauce WB, rice BIDLD, gluten free bread TIDWM, peanut butter WB, to assist w/ thickening stool 5) routine anti-diarrheal per MD 6) B12, folic acid, MVI supplementation 7) Weekly scaled weights Addendum: 06/11/21 at [address] Amended: Links added.
[2021-06-11 13:53] LABS: MAGNESIUM 1.8 MG/DL (1.5-2.4)
[2021-06-11 15:00] VITALS: BP 114/63
[2021-06-11] MEDS: potassium Cl 20 mEq SR tablet PO SCH ×2 (15:07→23:50)
--- NOTE | 2021-06-11 16:02 | NUR ---
LAB HER TO DRAW PATIENT, CHARGE RESCHEDULED DRAW FOR 1899
[2021-06-11] MEDS: LIPASE/PROTEASE/AMYLASE 16,800 UNIT CAPSULE.DR PO SCH (17:43)
[2021-06-11 18:00] VITALS: BP 112/68
[2021-06-11] MEDS: lactose-reduced food (Ensure Enlive) - 237ml bottle PO SCH (18:00)
--- NOTE | 2021-06-11 18:25 | NUR ---
Problems reprioritized. Patient report given, questions answered & plan of care reviewed with JULIAN MARTINEZ.
[2021-06-11 22:00] VITALS: BP 109/67
[2021-06-12] MEDS: diphenoxylate/atropine tablet (Lomotil) PO PRN ×3 (02:11→17:47)
[2021-06-12 06:00] VITALS: BP 103/63
--- NOTE | 2021-06-12 06:32 | NUR ---
Problems reprioritized. Patient report given, questions answered & plan of care reviewed with JUAN DIEGO.
[2021-06-12 07:07] LABS: ALBUMIN 2.7 G/DL (3.4-5.0); ANION GAP 7 (8-16); BLOOD UREA NITROGEN 6 MG/DL (7-18); BUN/CREATININE RATIO 9.2 (5.4-32.0); CALCIUM 8.3 MG/DL (8.5-10.1); CHLORIDE 110 MMOL/L (99-107); CREATININE 0.65 MG/DL (0.60-1.10); GLUCOSE 84 MG/DL (70-104); MAGNESIUM 1.9 MG/DL (1.5-2.4); PHOSPHORUS 3.8 MG/DL (2.3-4.5); POTASSIUM 4.1 MMOL/L (3.5-5.1); SODIUM 142 MMOL/L (135-145); TOTAL CARBON DIOXIDE 25.5 MMOL/L (24-32); eGFR > 90 ML/MIN
[2021-06-12] MEDS: LIPASE/PROTEASE/AMYLASE 16,800 UNIT CAPSULE.DR PO SCH ×3 (07:30→16:40)
[2021-06-12] MEDS ORDERED: potassium Cl 20 mEq SR tablet PO SCH (08:00)
[2021-06-12] MEDS: K and/or MAG REPLACEMENT MC SCH (08:00)
[2021-06-12] MEDS: heparin, porcine 5000 units/ml vial SQ SCH (08:00)
[2021-06-12] MEDS ORDERED: LIPA1CAP30 PO (08:19)
[2021-06-12] MEDS ORDERED: POTA-82 PO (08:19)
[2021-06-12] MEDS ORDERED: FOLI0.4T14 PO (08:19)
[2021-06-12] MEDS ORDERED: DIPH-629 PO ×3 (08:19→16:30)
[2021-06-12] MEDS ORDERED: CYAN500T71 PO (08:19)
[2021-06-12] MEDS: folic acid 0.4mg tablet PO SCH (08:38)
[2021-06-12] MEDS: lactose-reduced food (Ensure Enlive) - 237ml bottle PO SCH ×3 (08:38→18:14)
[2021-06-12] MEDS: loperamide 2mg capsule PO SCH ×3 (08:39→16:38)
[2021-06-12] MEDS: CITRUCEL PO SCH (08:39)
[2021-06-12] MEDS: potassium Cl 20 mEq SR tablet PO SCH ×2 (08:39→16:38)
[2021-06-12] MEDS: multivitamins, therapeutics tablet PO SCH (08:40)
[2021-06-12] MEDS: cyanocobalamin 500mcg tablet PO SCH (08:40)
[2021-06-12 10:49] VITALS: BP 97/59
[2021-06-12] MEDS ORDERED: chloestyramine/aspartame 4gm packet PO SCH (11:00)
[2021-06-12 14:00] VITALS: BP 100/63
--- NOTE | 2021-06-12 15:49 | NUR ---
spoke with Dr. Tenorio and took verbal order to discharge patient. Working on medications to be -re-routed to [facility] [address] [place]
--- NOTE | 2021-06-12 16:11 | NUR ---
PAGER ID: [phone] MESSAGE: [phone] Ken Ibarra We need a written prescription for limotal, due to the patients discharge being finalized and original sent to [place]. Thank you, Janet [phone] Addendum: 06/12/21 at 1612 by Janet Paz RN Dr. Tenorio is unavailable to write script at this time, message sent to hospitalist to help with prescription so patient can go home today.
[2021-06-12] MEDS ORDERED: QUELT PO (16:53)
[2021-06-12] MEDS ORDERED: heparin sodium, porcine/PF 100unit/ml 5ML syringe IV STA (17:04)
--- NOTE | 2021-06-12 18:45 | NUR ---
Patient was accompanied by his at time of discharge. Dayshift RN reported to this shift that all discharge instructions were provided to patient with verbalization of understanding. Patient had all of his belongings at time of discharge.
== END 2021-06-12 18:45 | disposition home or self-care (01) | DRG 329 ==
LOC: PAS IN 09:17 → MED 3N 19:09
PROVIDERS: ADMIT Colon & Rectal Surgery; ATTEND Colon & Rectal Surgery
PROC: 0DBB0ZZ Excision of Ileum, Open Approach (ICD-10-PCS; 2021-05-29)
PROC: 0DT80ZZ Resection of Small Intestine, Open Approach (ICD-10-PCS; principal; 2021-05-29 13:37)
DX: C20 Malignant neoplasm of rectum (principal); E43 Unspecified severe protein-calorie malnutrition; E87.1 Hypo-osmolality and hyponatremia; K56.7 Ileus, unspecified; Z68.1 Body mass index [BMI] 19.9 or less, adult; I10 Essential (primary) hypertension; R00.1 Bradycardia, unspecified; E87.6 Hypokalemia; I95.9 Hypotension, unspecified; Z43.2 Encounter for attention to ileostomy; Z88.8 Allergy status to other drugs, medicaments and biological substances; Z79.899 Other long term (current) drug therapy
CPT/HCPCS: Z7506; Z7508; 36415; 80048; 80053; 82150; 82948; 83690; 83735; 84100; 84132; 84134; 85007; 85008; 85025; 85610; 85730; 86140; 86870; 86885; 86900; 86901; 86905; 86920; 86922; 87081; 87324; 87449; 89055; A4618; A6449; A7000; C1758; G0378; J0131; J0694; J1642; J1644; J1885; J2250; J2270; J2405; J2704; J2710; J3010; J3260; J3480; J3490; J7030; J7120; S0020; U0003; U0005